=== PATIENT | female | born 1990 | race Caucasian/White ===

== ENCOUNTER 2022-01-07 22:41 | Emergency (ER) | payer MEDICAID ==
[~2022-01-07] VITALS: Ht 167.6 cm; Wt 99.1 kg
[2022-01-07 23:24] VITALS: BP 123/75
--- NOTE | 2022-01-07 23:28 | NUR ---
PT TO LOBBY
[2022-01-07] MEDS ORDERED: ONDANSETRON 4 MG/2 ML VIAL IVP ONE (23:45)
[2022-01-07] MEDS ORDERED: MORPHINE SULFATE 2 MG/ML SYR IVP ONE (23:45)
[2022-01-07] MEDS ORDERED: NACL 0.9% 1,000 ML IV SCH (23:45)
[2022-01-08 00:15] LABS: BASOPHILS % (AUTO) 0.3 % (0.0-2.0); EOSINOPHILS % (AUTO) 0.1 % (0.0-4.0); HEMATOCRIT 32.3 % (36-48); HEMOGLOBIN 10.9 g/dL (12.0-16.0); LYMPHOCYTES # (AUTO) 1.2 K/uL (2.5-16.5); LYMPHOCYTES % (AUTO) 10.5 % (20.5-51.1); MEAN CORPUSCULAR HEMOGLOBIN 26 pg (27-31); MEAN CORPUSCULAR HGB CONC 34 g/dL (33-37); MEAN CORPUSCULAR VOLUME 77.9 fL (80-94); MONOCYTES # (AUTO) 0.3 K/uL (0.8-1.0); NEUTROPHILS # (AUTO) 9.4 K/uL (1.8-7.7); NEUTROPHILS % (AUTO) 86.1 % (42.2-75.2); PLATELET COUNT (AUTO) 332 K/uL (140-450); RED BLOOD CELL COUNT(AUTO) 4.15 MIL/uL (4.20-5.40)
[2022-01-08 00:44] LABS: ALBUMIN 3.9 g/dL (3.4-5.0); ANION GAP 13.8 (8-16); CARBON DIOXIDE 26.4 mmol/L (21-32); POTASSIUM 4.2 mmol/L (3.5-5.1)
--- NOTE | 2022-01-08 01:12 | NUR ---
PT TO BED 12
--- NOTE | 2022-01-08 01:32 | NUR ---
PT REFUSING IV AT THIS TIME
[2022-01-08 01:37] VITALS: BP 123/75
== END 2022-01-08 01:37 | disposition left against medical advice (07) ==
LOC: MED 22:41
DX: R11.2 Nausea with vomiting, unspecified (principal); R10.32 Left lower quadrant pain
CPT/HCPCS: 36415; 80053; 84702; 85025; 99283